=== PATIENT | male | born 1940 | race Caucasian/White ===

== ENCOUNTER 2023-12-20 11:24 | Inpatient (IN) | payer MEDICARE ==
[~2023-12-20] VITALS: Ht 180.3 cm; Wt 173.9 kg
[2023-12-20] MEDS ORDERED: Acetaminophen 325 MG TAB PO PRN (13:30)
[2023-12-20] MEDS ORDERED: Polyethylene Glycol 3350 Powder 17 GM PACKET PO PRN (13:30)
[2023-12-20] MEDS ORDERED: GABAPENTIN100 MG PO (13:31)
[2023-12-20] MEDS ORDERED: LEVOTHYROXIN0.088 MG PO (13:31)
[2023-12-20] MEDS ORDERED: VELTASSA8.4 GM PO (13:35)
[2023-12-20] MEDS ORDERED: AMOXICILLIN AND1 TA2 PO (13:38)
[2023-12-20] MEDS ORDERED: NOVOLOG 100U100 U/ML SQ (13:39)
[2023-12-20] MEDS ORDERED: TRAMADOL 50 MG TAB PO (13:40)
[2023-12-20] MEDS ORDERED: TOUJEO MAX300 UNIT/1 SQ (13:40)
[2023-12-20] MEDS ORDERED: VICTOZA 3-0.6 MG/0.1 SQ (13:41)
[2023-12-20] MEDS ORDERED: CARVEDILOL6.25 MG PO (13:43)
[2023-12-20] MEDS ORDERED: ENTRESTO 24 MG1 EACH PO (13:43)
[2023-12-20] MEDS ORDERED: ATORVASTATIN CA40 MG PO (13:43)
[2023-12-20] MEDS ORDERED: FUROSEMIDE40 MG (13:44)
[2023-12-20] MEDS ORDERED: CARVEDILOL3.125 MG PO (13:44)
[2023-12-20] MEDS ORDERED: traMADol 50 MG TAB PO PRN (13:45)
[2023-12-20] MEDS ORDERED: Albuterol/Ipratropium 3 MG-0.5 MG/3 ML Neb Soln IH PRN (13:45)
[2023-12-20] MEDS ORDERED: Dextrose 50% Water 25 GM/50 ML SYRINGE IV PRN (13:45)
[2023-12-20] MEDS ORDERED: Dextrose (Glucose) 15 GM (4 x 3.75 GM) Chewable TAB PACK PO PRN (13:45)
[2023-12-20] MEDS ORDERED: Glucagon 1 MG VIAL IM PRN (13:45)
[2023-12-20] MEDS ORDERED: Albuterol/Ipratropium 3 MG-0.5 MG/3 ML Neb Soln IH SCH (14:00)
[2023-12-20] MEDS ORDERED: Colestipol 1 G TAB PO PRN (14:00)
[2023-12-20] MEDS ORDERED: Sodium Bicarbonate 650 MG TAB PO SCH (14:00)
[2023-12-20] MEDS ORDERED: Melatonin 3 MG TAB PO PRN (14:00)
[2023-12-20 14:43] LABS: BASO # 0.04 K/mm3 (0.02-0.10); EOS # 0.69 K/mm3 (0.04-0.40); EOS % 4.8 % (0.0-4.0); HEMATOCRIT 37.6 % (42.0-52.0); HEMOGLOBIN 11.5 g/dL (13.5-18.0); LYMPH# 1.23 K/mm3 (1.50-4.00); MEAN CELL VOLUME 104 fl (78-100); MEAN CORPUSCULAR HEMOGLOBIN 32 pg (27-31); MEAN CORPUSCULAR HGB CONC 31 g/dL (33-37); MONO # 1.21 K/mm3 (0.20-0.80); NEU # 11.25 K/mm3 (1.40-6.50); PLATELET COUNT 384 K/mm3 (130-400); RED BLOOD COUNT 3.61 M/mm3 (4.20-5.60); RED CELL DISTRIBUTION WIDTH 13.8 % (11.5-14.5); WHITE BLOOD COUNT 14.4 K/mm3 (4.8-10.8)
[2023-12-20 14:47] LABS: ALBUMIN 3.3 g/dL (3.4-4.8)
[2023-12-20 14:49] LABS: CALCIUM 9.2 mg/dL (8.3-10.5)
[2023-12-20 14:50] LABS: TOTAL PROTEIN 7.9 g/dL (6.2-8.1)
[2023-12-20 14:52] LABS: TOTAL BILIRUBIN 0.5 mg/dL (0.2-1.2)
[2023-12-20] MEDS ORDERED: Heparin 5,000 UNITS/ML 1 ML VIAL SQ SCH (16:00)
[2023-12-20] MEDS ORDERED: Insulin Aspart (NovoLOG) SQ SCH (16:30)
[2023-12-20] MEDS ORDERED: Carvedilol 3.125 MG TAB PO SCH (17:00)
[2023-12-20] MEDS ORDERED: Ferrous Sulfate 325 MG TAB PO SCH (17:00)
[2023-12-20 17:34] VITALS: BP 117/46
[2023-12-20] MEDS ORDERED: Gabapentin 100 MG CAP PO SCH (21:00)
[2023-12-20] MEDS ORDERED: Carboxymethylcellulose PF Ophth 0.4 ML DROPPERETTE OP SCH (21:00)
[2023-12-20] MEDS ORDERED: Doxycycline Monohydrate 100 MG CAP PO SCH (21:00)
[2023-12-20] MEDS ORDERED: Omega-3 Fatty Acid Esters 1,000 MG CAP PO SCH (21:00)
[2023-12-21 05:47] VITALS: BP 152/81
[2023-12-21 06:28] LABS: HEMATOCRIT 33.8 % (42.0-52.0); HEMOGLOBIN 10.3 g/dL (13.5-18.0); RED BLOOD COUNT 3.26 M/mm3 (4.20-5.60); RED CELL DISTRIBUTION WIDTH 13.9 % (11.5-14.5); WHITE BLOOD COUNT 11.6 K/mm3 (4.8-10.8)
[2023-12-21 06:32] LABS: CALCIUM 8.9 mg/dL (8.3-10.5)
[2023-12-21 06:33] LABS: TOTAL PROTEIN 7.2 g/dL (6.2-8.1)
[2023-12-21 06:35] LABS: TOTAL BILIRUBIN 0.5 mg/dL (0.2-1.2)
[2023-12-21] MEDS ORDERED: Empagliflozin 10 MG TAB PO SCH (09:00)
[2023-12-21] MEDS ORDERED: Bumetanide 1 MG TAB PO SCH (09:00)
[2023-12-21] MEDS ORDERED: Miconazole 2% Topical Powder BOTTLE TP PRN (09:15)
[2023-12-21] MEDS ORDERED: Folic Acid 1 MG TAB PO SCH (10:14)
[2023-12-21 16:41] VITALS: BP 141/101
[2023-12-21 17:48] LABS: FOLATE (FOLIC ACID) 17.6 ng/mL (2.0-20.0)
[2023-12-21 19:09] VITALS: BP 126/60
[2023-12-21] MEDS ORDERED: Carboxymethylcellulose PF Ophth 0.4 ML DROPPERETTE OP PRN (21:32)
[2023-12-22 05:20] VITALS: BP 133/60
[2023-12-22 18:00] VITALS: BP 148/82
[2023-12-23 06:10] VITALS: BP 128/68
[2023-12-23 17:15] VITALS: BP 140/71
[2023-12-24 05:43] VITALS: BP 122/64
[2023-12-24 18:00] VITALS: BP 137/68
[2023-12-25 05:38] VITALS: BP 128/71
[2023-12-25 07:18] LABS: CALCIUM 9.3 mg/dL (8.3-10.5)
[2023-12-25] MEDS ORDERED: FOLIC ACID1 MG PO (10:27)
[2023-12-25] MEDS ORDERED: REFRESH CELLUVI1 SOL OP (10:27)
[2023-12-25] MEDS ORDERED: ASPIRIN E.C. 8181 MG PO (10:27)
[2023-12-25] MEDS ORDERED: ANTIFUNGAL POWD85 GM TP (10:27)
[2023-12-25] MEDS ORDERED: FISH OIL 1,0001 EAC3 PO (10:27)
[2023-12-25] MEDS ORDERED: VITAMIN D325 MC2 PO (10:27)
[2023-12-25] MEDS ORDERED: BUMEX 1MG TA1 MG/TA1 PO (10:27)
[2023-12-25] MEDS ORDERED: SODIUM BIC650 MG/TAB PO (10:27)
[2023-12-25] MEDS ORDERED: DOXYCYCLINE MO100 M3 PO (10:27)
[2023-12-25] MEDS ORDERED: FERROUS SU325 MG/TAB PO (10:27)
== END 2023-12-25 11:46 | DRG 281 ==
LOC: MED/SURG 11:24
PROVIDERS: ADMIT Family Medicine
DX: I13.0 Hypertensive heart and chronic kidney disease with heart failure and stage 1 through stage 4 chronic kidney disease, or unspecified chronic kidney disease (principal); J96.10 Chronic respiratory failure, unspecified whether with hypoxia or hypercapnia; I21.4 Non-ST elevation (NSTEMI) myocardial infarction; M86.8X7 Other osteomyelitis, ankle and foot; N18.4 Chronic kidney disease, stage 4 (severe); Z68.43 Body mass index [BMI] 50.0-59.9, adult; I50.9 Heart failure, unspecified; R53.81 Other malaise; E11.69 Type 2 diabetes mellitus with other specified complication; Z79.4 Long term (current) use of insulin; E11.22 Type 2 diabetes mellitus with diabetic chronic kidney disease; E87.5 Hyperkalemia; G47.33 Obstructive sleep apnea (adult) (pediatric); E66.01 Morbid (severe) obesity due to excess calories; I48.91 Unspecified atrial fibrillation; Z79.01 Long term (current) use of anticoagulants; E78.5 Hyperlipidemia, unspecified; D50.9 Iron deficiency anemia, unspecified; E03.9 Hypothyroidism, unspecified; G89.4 Chronic pain syndrome; G47.00 Insomnia, unspecified; K58.9 Irritable bowel syndrome, unspecified
CPT/HCPCS: A9270; J1644; J1815